=== PATIENT | male | born 1970 ===

== ENCOUNTER 2022-10-02 15:25 | Inpatient (IN) ==
[2022-10-02] MEDS ORDERED: MAGNESIUM HYDROXIDE SUSP 30 ML UDCUP PO PRN (16:39)
[2022-10-02] MEDS ORDERED: TEMAZEPAM 15 MG CAPSULE PO PRN (16:39)
[2022-10-02] MEDS ORDERED: GLUCAGON 1 MG VIAL IM PRN (16:39)
[2022-10-02] MEDS ORDERED: ONDANSETRON 4 MG/2 ML VIAL IV PRN (16:39)
[2022-10-02] MEDS ORDERED: MORPHINE 2 MG/1 ML SYRINGE IV PRN ×2 (16:51)
[2022-10-02] MEDS ORDERED: INSULIN REGULAR 100 UNIT/ML SUBCUT SCH (17:00)
[2022-10-02] MEDS ORDERED: DEXTROSE 10% 250 ML BAG IV PRN (17:07)
[2022-10-02] MEDS: LACTATED RINGERS 1,000 ML IV SCH (17:50)
[2022-10-02 17:54] LABS: Basophils % 0.5 % (0.0-0.8); Eosinophils # 0.1 10*3/uL (0.0-0.87); Eosinophils % 1.1 % (0.00-10.9); Hemoglobin 12.1 GM/DL (14.0-18.0); Immature Granulocytes % 0.4 %; Immature Granulocytes Absolute 0.03 #; Lymphocytes # 1.8 10*3/uL (1.4-4.0); Lymphocytes % 22.5 % (21.2-54.2); Mean Corpuscular HGB Conc 32.7 GM/DL (32-36); Mean Corpuscular Volume 100.8 FL (87-102); Mean Platelet Volume 8.7 FL (9.6-12.0); Monocytes # 0.7 10*3/uL (0.11-0.8); Monocytes % 8.8 % (1.7-12.7); Neutrophils % 66.7 % (38.7-73.9); Platelet Count 323 T/CUMM (130-400); Red Blood Count 3.67 MC/CUMM (3.8-5.5); Red Cell Distribution Width 11.8 % (9.3-17.3); White Blood Count 8.08 T/CUMM (4-12)
[2022-10-02 18:05] LABS: PT Patient Result 11.4 SECS (10.1-12.1); Partial Thromboplastin Time 28.3 SECS (23.7-32.9)
[2022-10-02 18:09] LABS: Calcium 8.6 MG/DL (8.5-10.1); Osmolality,Calculated 285.3 MOS/KG (273-304); Potassium 3.8 MMOL/L (3.5-5.1)
[2022-10-02] MEDS ORDERED: ALBUTEROL 2.5 MG/3 ML NEB RESP TX PRN (19:00)
[2022-10-02] MEDS: MORPHINE 2 MG/1 ML SYRINGE IV PRN (21:14)
[2022-10-02] MEDS: INSULIN REGULAR 100 UNIT/ML SUBCUT SCH (22:12)
[2022-10-03] MEDS: MORPHINE 2 MG/1 ML SYRINGE IV PRN ×2 (06:31→21:21)
[2022-10-03] MEDS: amLODIPine 10 MG TABLET PO SCH (08:04)
[2022-10-03] MEDS: ASPIRIN EC 81 MG TABLET PO SCH (09:44)
[2022-10-03] MEDS: PANTOPRAZOLE 40 MG TABLET PO SCH (09:44)
[2022-10-03] MEDS: INSULIN REGULAR 100 UNIT/ML SUBCUT SCH ×4 (09:44→21:21)
[2022-10-03] MEDS ORDERED: ceFAZolin 2,000 MG/50 ML DUPLEX IV ONE (10:00)
[2022-10-03] MEDS ORDERED: buprenorphine HCL 0.3 MG/ML VIAL ONE (10:02)
[2022-10-03] MEDS ORDERED: LACTATED RINGERS 1,000 ML IV SCH (10:30)
[2022-10-03] MEDS ORDERED: BISACODYL 10 MG SUPP RECTAL PRN (10:45)
[2022-10-03] MEDS ORDERED: diphenhydrAMINE CAP 25 MG CAPSULE PO PRN (10:45)
[2022-10-03] MEDS ORDERED: LACTULOSE 20 GM/30 ML UDCUP PO PRN (10:45)
[2022-10-03] MEDS ORDERED: ACETAMINOPHEN 325 MG TABLET PO PRN (10:45)
[2022-10-03] MEDS ORDERED: MIDAZOLAM 2 MG/2 ML VIAL ONE (10:50)
[2022-10-03] MEDS ORDERED: PHENYLEPHRINE 1 MG/10 ML SYRINGE IV ONE (11:14)
[2022-10-03] MEDS: LACTATED RINGERS 1,000 ML IV SCH (13:49)
[2022-10-03] MEDS: ceFAZolin 2,000 MG/50 ML DUPLEX IV SCH ×2 (15:36→23:50)
[2022-10-03] MEDS ORDERED: GLUCAGON 1 MG VIAL IM PRN (16:21)
[2022-10-03] MEDS ORDERED: DEXTROSE 50% 25 GM/50 ML VIAL IV PRN (16:21)
[2022-10-03] MEDS ORDERED: SIMVASTATIN 10 MG TABLET PO SCH (21:00)
[2022-10-04] MEDS: INSULIN REGULAR 100 UNIT/ML SUBCUT SCH ×2 (07:17→11:11)
[2022-10-04] MEDS: LACTATED RINGERS 1,000 ML IV SCH (08:55)
[2022-10-04] MEDS: ceFAZolin 2,000 MG/50 ML DUPLEX IV SCH (08:55)
[2022-10-04] MEDS: PANTOPRAZOLE 40 MG TABLET PO SCH (08:58)
[2022-10-04] MEDS: amLODIPine 10 MG TABLET PO SCH (08:58)
[2022-10-04] MEDS: ASPIRIN EC 81 MG TABLET PO SCH (08:58)
[2022-10-04 14:36] VITALS: BP 174/108
== END 2022-10-04 15:00 | disposition home or self-care (01) | DRG 465 ==
LOC: EDBD → EDUNIT# → N.ED 15:25 → N.EDINP 16:39 → N.3E 17:55
PROVIDERS: ADMIT Orthopaedic Surgery; ATTEND Orthopaedic Surgery